=== PATIENT | male | born 1960 | race Caucasian/White ===

== ENCOUNTER 2018-04-21 03:08 | Emergency (ER) | payer OTHER ==
--- NOTE | 2018-04-21 03:12 | PDOC ---
History of Present Illness - General Chief Complaint: Pain, Acute Stated Complaint: RT GROIN PAIN History Source: Patient Exam Limitations: No Limitations - History of Present Illness Initial Comments: 04/21/18 03:47 Mr Vasquez is a 57 yo M with a h/o HTN, HLD, prior h/o kidney stone who presents to the ER with a complaint of right groin pain. Pt states that the symptoms began suddenly approximately 3 hours prior to arrival in the ER. Pain describes pain as crampy, intermittent, located in the suprapubic region. 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 HEAD, EYES, EARS, NOSE AND THROAT: No: change in vision, ear pain, discharge, sore throat, throat swelling. CARDIOVASCULAR: No: chest pain, lightheadedness, palpitations, syncope RESPIRATORY: No: cough, shortness of breath, wheezing, hemoptysis, stridor. GASTROINTESTINAL: right groin/abdominal pain No: nausea, vomiting, diarrhea GENITOURINARY: No: dysuria, hematuria, frequency, urgency, flank pain. MUSCULOSKELETAL: No: flank pain SKIN: No: rashes or lesions NEUROLOGIC: No: headache, vertigo, paresthesias, weakness PHYSICAL EXAM GENERAL: The patient is in no acute distress. HEAD: Normal EYES: PERRLA, EOMI, sclera anicteric, conjunctiva clear. ENT: Ears normal, nares patent, oropharynx clear without exudates. Moist mucous membranes. NECK: Normal range of motion, supple LUNGS: Breath sounds equal, clear to auscultation bilaterally. No wheezes, and no crackles. HEART:Regular rate and rhythm, normal S1 and S2 without murmur, rub or gallop. ABDOMEN: Nontender to palpation, Soft, normoactive bowel sounds. No guarding, no rebound. EXTREMITIES: Normal range of motion, no edema NEUROLOGICAL: Cranial nerves II through XII grossly intact. Normal speech. No focal neurological deficits. MUSCULOSKELETAL: No CVA tenderness SKIN: No Dermatomal rash noted Past History - Past Medical History Allergies/Adverse Reactions: Allergies Allergy/AdvReac Type Severity Reaction Status Date / Time No Known Allergies Allergy Unverified 04/21/18 03:09 Home Medications: Ambulatory Orders Aspirin [Aspirin EC] 81 mg PO DAILY 04/21/18 Multivitamins [Tab-A-Vit -] 1 tab PO DAILY 04/21/18 Naproxen Sodium 220 mg PO BID PRN #30 tablet 04/21/18 Cascade-3 Fatty Acids/Fish Oil [Fish Oil 1,000 mg Capsule] 1 each PO DAILY Oxycodone HCl/Acetaminophen [Percocet 5-325 mg Tablet -] 1 tab PO TID PRN #12 tablet MDD 3 04/21/18 Rosuvastatin Calcium [Crestor] 20 mg PO DAILY 04/21/18 Tamsulosin HCl [Flomax] 0.4 mg PO HS #10 capsule 04/21/18 Triamterene/Hydrochlorothiazid [Dyazide 37.5-25 Capsule] 1 each PO DAILY ED Treatment Course - LABORATORY CBC & Chemistry Diagram: 04/21/18 03:22 04/21/18 03:22 Medical Decision Making - Medical Decision Making 04/21/18 03:54 Pt examination and history most consistent with stone He has a remote h/o stone Will do: labs UA Parenteral pain medications as pt is very uncomfortable Spiral CT Re assess 04/21/18 04:32 Laboratory Tests 04/21/18 03:22 Urine Ketones Negative Urine Blood 3+ H Urine Nitrite Negative Ur Leukocyte Esterase Negative Mild right hydronephrosis and perinephric inflammation secondary to a 4 mm distal right ureteral stone, slightly proximal to the UVJ. Questionable right hepatic cyst can be followed up with nonemergent ultrasound Pain improved Will plan to discharge to home Follow up with pmd/gu 04/21/18 04:44 Laboratory Tests 04/21/18 04/21/18 03:22 03:22 WBC 6.7 Hgb 14.7 Hct 43.5 Plt Count 205 Urine WBC (Auto) <1 Urine RBC (Auto) 120 Ur Epithelial Cells Rare Urine Bacteria Rare Urine Mucus Rare 04/21/18 04:50 Laboratory Tests 04/21/18 03:22 Sodium 139 Potassium 4.0 Chloride 102 Carbon Dioxide 30 BUN 13 Creatinine 0.7 Random Glucose 101 04/21/18 04:59 PT re assessed He still has pain Will give Dilaudid for pain Will re assess Clinical Impression: Ureterolithiasis, initial presentation *DC/Admit/Observation/Transfer Diagnosis at time of Disposition: Ureterolithiasis - Discharge Dispostion Condition at time of disposition: Stable Decision to Admit order: No - Prescriptions Prescriptions: Naproxen Sodium 220 mg PO BID PRN #30 tablet PRN Reason: Pain Oxycodone HCl/Acetaminophen [Percocet 5-325 mg Tablet -] 1 tab PO TID PRN #12 tablet MDD 3 PRN Reason: Severe Pain Tamsulosin HCl [Flomax] 0.4 mg PO HS #10 capsule - Referrals Referrals: Kojo Negro MD [Primary Care Provider] - Ariel Agarwal MD [Staff Physician] - - Patient Instructions Printed Discharge Instructions: Kidney Stones (Alternative Therapy), DI for Kidney Stones Additional Instructions: Thank you for coming in to the ER this morning Please be sure to follow up with the urologist within 1 week You can also follow up with your primary care physician within 1 week Please strain your urine, you will probably see the stone when you pass it Please take pain medications as prescribed Monitor for fevers or chills Please return to the ER for fevers, worsening pain, pain not improving with oral pain medication - Post Discharge Activity
[2018-04-21] MEDS ORDERED: SODIUM CHLORIDE 1,000 ML IV STA (03:22)
[2018-04-21] MEDS ORDERED: KETOROLAC TROMETHAMINE 30 MG/1 ML VIAL IVPUSH ONE (03:22)
[2018-04-21] MEDS ORDERED: morphine CARPU-JECT 4 MG/1 ML DISP.SYRIN IVPUSH ONE (03:22)
[2018-04-21 03:23] VITALS: BP 145/92; PULSE 76; TEMP 98.6; BMI 39.5
[2018-04-21] MEDS ORDERED: morphine SULFATE 4 MG/ML VIAL ONE (03:26)
[2018-04-21] MEDS ORDERED: KETOROLAC TROMETHAMINE 30 MG/1 ML VIAL ONE (03:26)
[2018-04-21 04:23] LABS: URINE APPEARANCE CLEAR; URINE BILIRUBIN NEGATIVE (<2.0 mg/dL); URINE COLOR LTYELLOW; URINE GLUCOSE (UA) NEGATIVE (NEGATIVE); URINE KETONE NEGATIVE (NEGATIVE); URINE LEUK ESTERASE NEGATIVE (NEGATIVE); URINE NITRITE NEGATIVE (NEGATIVE); URINE PROTEIN NEGATIVE (NEGATIVE); URINE UROBILINOGEN NEGATIVE mg/dL (0.2-1.0)
[2018-04-21 04:31] LABS: HEMATOCRIT 43.5 % (35.4-49); HEMOGLOBIN 14.7 GM/dl (11.7-16.9); MCH 28.1 pg (25.7-33.7); MCHC 33.9 g/dl (32.0-35.9); MEAN CELL VOLUME 82.9 fl (80-96); PLATELET COUNT 205 K/MM3 (134-434); RBC 5.25 M/mm3 (4.00-5.60); RDW 13.7 % (11.9-15.9); WHITE BLOOD COUNT 6.7 K/mm3 (4.0-10.8)
[2018-04-21 04:32] LABS: BASO % 0.6 % (0-2.0); EOS % 2.4 % (0-4.5); LYMPH % 30.3 % (8-40); MONO % 9.9 % (3.8-10.2); NEUT % 56.8 % (42.8-82.8)
[2018-04-21 04:33] LABS: EPI CELLS RARE /HPF (FEW); URINE BACTERIA RARE /hpf (NONE SEEN); URINE MUCUS RARE
[2018-04-21 04:48] LABS: ALBUMIN 3.9 g/dl (3.4-5.0); ALK PHOS 74 U/L (45-117); ANION GAP 7 (8-16); BILIRUBIN,TOTAL 0.4 mg/dL (0.2-1.0); BLOOD UREA NITROGEN 13 mg/dL (7-18); CALCIUM 9.4 mg/dL (8.5-10.1); CHLORIDE 102 mmol/L (98-107); CO2 30 mmol/L (21-32); CREATININE 0.7 mg/dL (0.7-1.3); GLUCOSE,RANDOM 101 mg/dL (74-106); SGOT/AST 24 U/L (15-37); SGPT/ALT 44 U/L (12-78); SODIUM 139 mmol/L (136-145); TOT PROT 6.7 g/dl (6.4-8.2)
[2018-04-21] MEDS ORDERED: HYDROmorphone HCL CARPU-JECT 1 MG/1 ML DISP.SYRIN IVPB ONE (04:59)
[2018-04-21] MEDS ORDERED: HYDROmorphone HCL CARPU-JECT 1 MG/1 ML DISP.SYRIN ONE (05:03)
== END 2018-04-21 05:30 | disposition home or self-care (01) ==
LOC: FER 03:08
PROC: 3E0333Z Introduction of Anti-inflammatory into Peripheral Vein, Percutaneous Approach (ICD-10-PCS; principal; 2018-04-21)
PROC: 3E033NZ Introduction of Analgesics, Hypnotics, Sedatives into Peripheral Vein, Percutaneous Approach (ICD-10-PCS; 2018-04-21)
PROC: 3E0337Z Introduction of Electrolytic and Water Balance Substance into Peripheral Vein, Percutaneous Approach (ICD-10-PCS; 2018-04-21)
DX: N13.2 Hydronephrosis with renal and ureteral calculous obstruction (principal); I10 Essential (primary) hypertension; E78.5 Hyperlipidemia, unspecified; Z87.442 Personal history of urinary calculi; Z79.82 Long term (current) use of aspirin
CPT/HCPCS: 36415; 74176; 80053; 81003; 81015; 85025; 85027; 87086; 99282-25; J7030